=== PATIENT | male | born 1965 | race African-American/Black ===

== ENCOUNTER 2022-03-05 20:04 | Emergency (ER) | payer MEDICAID, OTHER ==
[~2022-03-05] VITALS: Ht 167.6 cm; Wt 66.1 kg
[~2022-03-05 20:04] MED LIST: CHOL20007 PO; FERR325T50 PO; LEVO750T64 PO; NOR10T PO
[2022-03-05] MEDS ORDERED: HYDROcodone-ACET 10/325MG TAB PO ONE (23:15)
[2022-03-05] MEDS ORDERED: OXYMETAZOLINE HCL 0.05 % NASAL SPRAY 15ML EACHNOSTRI ONE (23:15)
[2022-03-05] MEDS ORDERED: COCAINE HCL 4% TOP SOL 4ML TOP ONE (23:15)
[2022-03-05] MEDS ORDERED: TETRACAINE HCL 0.5% OPTH(EYE) SOLN 4ML LEFTEYE ONE (23:45)
[2022-03-05] MEDS ORDERED: TETRACAINE HCL 0.5% OPTH(EYE) SOLN 4ML RIGHTEYE ONE (23:45)
[2022-03-05 23:59] LABS: Albumin 3.8 g/dL (3.4-5.0); BUN/Creatinine Ratio 17.9; INR 1.01 (0.9-1.15); Partial Thromboplastin Time 26.9 sec (24.6-33.4); Potassium 4.3 mmol/L (3.5-5.1)
[2022-03-06 00:02] LABS: Basophils # (auto) 0 10 ^3/uL (0-0.2); Basophils % (auto) 0.4 % (0.0-2.0); Eosinophils # (auto) 0 10 ^3/uL (0-0.8); Hematocrit 41.2 % (41.0-53.0); Hemoglobin 14.2 g/dL (13.5-17.5); Lymphocytes # (auto) 1.2 10 ^3/uL (0.4-5.4); Lymphocytes % (auto) 22.4 % (10.0-50.0); Mean Corpuscular Hemoglobin 34.6 pg (28.0-32.0); Mean Corpuscular Hgb Conc. 34.4 g/dL (32.0-36.0); Mean Corpuscular Volume 100.6 fL (80.0-100.0); Monocytes # (auto) 0.4 10 ^3/uL (0-1.3); Monocytes % (auto) 7.4 % (0.0-12.0); Neutrophils # (auto) 3.6 10 ^3/uL (1.6-8.6); Neutrophils % (auto) 69.8 % (37.0-80.0); Nucleated Red Blood Cells % 0.1 %; Red Blood Cells 4.09 10^6/uL (4.5-5.90); Red Cell Distribution Width 15.8 % (11.8-14.3); White Blood Cell 5.2 10^3/uL (4.4-10.8)
[2022-03-06 00:13] LABS: Bilirubin, Total 0.4 mg/dL (0.2-1.0); Total Protein 7.5 g/dL (6.4-8.2)
[2022-03-06] MEDS ORDERED: HYDROmorphone HCL 2 MG/ML VL/or syr IM ONE (05:00)
[2022-03-06] MEDS ORDERED: ONDANSETRON ODT 4 MG TAB PO ONE (05:00)
[2022-03-06] MEDS ORDERED: IBUP600T28 PO (05:23)
[2022-03-06 05:30] VITALS: BP 149/88
[2022-03-06] MEDS ORDERED: KETOROLAC TROMETH 30 MG/ML 1ML VIAL IM ONE (05:45)
== END 2022-03-06 05:54 | disposition home or self-care (01) ==
LOC: ER 20:06
DX: S02.2XXA Fracture of nasal bones, initial encounter for closed fracture (principal); J44.9 Chronic obstructive pulmonary disease, unspecified; F12.10 Cannabis abuse, uncomplicated; Z87.891 Personal history of nicotine dependence; X58.XXXA Exposure to other specified factors, initial encounter; Y93.89 Activity, other specified; Y92.89 Other specified places as the place of occurrence of the external cause; Y99.8 Other external cause status
CPT/HCPCS: 36415; 70486; 80053; 85025; 85610; 85730; 96372; 99284; J1885; Q0162

== ENCOUNTER 2023-05-19 09:18 | Emergency (ER) | payer MEDICAID ==
[~2023-05-19] VITALS: Ht 165.1 cm; Wt 58.5 kg
[~2023-05-19 09:18] MED LIST changes: +IBUP1TAB5 PO; +LEVO750T40 PO; -LEVO750T64 PO
[2023-05-19 09:41] VITALS: BP 125/80; PULSE 77; TEMP 98
[2023-05-19] MEDS ORDERED: IPRATROPIUM BROM 0.5 MG/2.5ML INH SOL NEB ONE (10:00)
[2023-05-19] MEDS ORDERED: methylPREDNISolone SOD SUCC 125 MG/2 ML VL IM ONE (10:00)
[2023-05-19] MEDS ORDERED: ALBUTEROL SULF 2.5 MG/0.5ML(0.5%) NEB SOLN NEB ONE (10:00)
[2023-05-19 10:35] VITALS: RESP 20; O2SAT 95
[2023-05-19] MEDS ORDERED: PROM1SOL4 PO (10:59)
[2023-05-19] MEDS ORDERED: METH4PAK PO (10:59)
[2023-05-19] MEDS ORDERED: LEVO500T91 PO (10:59)
== END 2023-05-19 11:12 | disposition home or self-care (01) ==
LOC: ER 09:18
DX: J42 Unspecified chronic bronchitis (principal); F12.10 Cannabis abuse, uncomplicated; Z87.891 Personal history of nicotine dependence
CPT/HCPCS: 71045; 94640; 96372; 99283; J2930; J7644

== ENCOUNTER 2023-09-24 13:34 | Inpatient (IN) | payer MEDICAID ==
[~2023-09-24] VITALS: Ht 167.6 cm; Wt 66.0 kg
[2023-09-24 07:49] VITALS: PULSE 53; RESP 14; O2SAT 100
[~2023-09-24 13:34] MED LIST changes: +LEVO500T91 PO; +METH4PAK PO; +PROM1SOL4 PO
[2023-09-24 14:48] LABS: Mean Corpuscular Hemoglobin 32.8 pg (28.0-32.0)
[2023-09-24 14:53] LABS: Hematocrit 40.9 % (41.0-53.0); Hemoglobin 14.1 g/dL (13.5-17.5); Mean Corpuscular Hgb Conc. 34.5 g/dL (32.0-36.0); Mean Corpuscular Volume 95.1 fL (80.0-100.0); Red Cell Distribution Width 15.8 % (11.8-14.3)
[2023-09-24 14:56] LABS: White Blood Cell 1.6 10^3/uL (4.4-10.8)
[2023-09-24 14:58] LABS: Basophils % (manual) 0 (0.0-2.0); Blast Cells 0; Eosinophils % (manual) 0 (0-7); Metamyelocytes % 0; Myelocytes % 0; Promyelocytes % 0
[2023-09-24 15:03] LABS: Chloride 103 mmol/L (98-107); Potassium 3.7 mmol/L (3.5-5.1); Sodium 136 mmol/L (136-145)
[2023-09-24 15:04] LABS: Anion Gap 7 (5-15); Calcium 9.8 mg/dL (8.7-10.4); Carbon Dioxide 26 mmol/L (20-30)
[2023-09-24 15:09] LABS: BUN/Creatinine Ratio 8.3 (10.0-20.0); Blood Urea Nitrogen 9 mg/dL (9-23); Glucose 108 mg/dL (74-106)
[2023-09-24] MEDS: methylPREDNISolone SOD SUCC 125 MG/2 ML VL IV ONE (15:31)
[2023-09-24 16:12] LABS: Band Neutrophils % (manual) 1; Lymphocytes % (manual) 67 (10.0-50.0); Monocytes % (manual) 2 (0-12); Reactive Lymphocytes 5
[2023-09-24 16:13] LABS: Platelet Estimate Adequate
[2023-09-24] MEDS ORDERED: ACETAMINOPHEN 325 MG TAB PO PRN (20:15)
[2023-09-24] MEDS ORDERED: NITROGLYCERIN 0.4 MG SL TAB SL PRN (20:15)
[2023-09-24] MEDS ORDERED: DOCUSATE SOD 100 MG CAP PO PRN (20:15)
[2023-09-24] MEDS ORDERED: ONDANSETRON HCL 4 MG/2 ML VIAL IV PRN (20:15)
[2023-09-24] MEDS ORDERED: MORPHINE SULFATE INJ 2 MG/ml SYRG IV PRN ×2 (20:15)
[2023-09-24] MEDS ORDERED: AZITHROMYCIN 500MG/ 250ML 250 ML IV ONE (21:45)
[2023-09-24] MEDS: SODIUM CHLORIDE 0.9% 1,000 ML IV ONE (23:12)
[2023-09-24] MEDS: cefTRIAXone 1GM/50ML D5W 50 ML IV ONE (23:12)
[2023-09-24] MEDS: methylPREDNISolone SOD SUCC 40 MG/ML VL IV SCH (23:23)
[2023-09-24] MEDS: IOHEXOL 350 MG/ML 100ML IJ ONE (23:24)
[2023-09-24 23:38] LABS: Urine Bacteria None Seen /hpf (None Seen)
[2023-09-24 23:45] LABS: Urine Blood Negative /uL (Negative); Urine Clarity Clear (Clear); Urine Color Yellow (Yellow); Urine Mucus FEW (None Seen); Urine Protein, UAD 1+ (Negative); Urine Specific Gravity > 1.050 (1.001-1.035); Urine Urobilinogen 4 mg/dL (Negative); Urine WBC <1 /hpf (0 - 3)
[2023-09-24] MEDS: AZITHROMYCIN 500MG/ 250ML 250 ML IV SCH (23:54)
[2023-09-25] VITALS (17 sets, daily range): BP systolic 92–135; BP diastolic 59–92; PULSE 50–74; RESP 16–22; TEMP 97.7–98.3; O2SAT 95–100
[2023-09-25] MEDS: IPRATROPIUM BROM 0.5 MG/2.5ML INH SOL NEB SCH
[2023-09-25] MEDS: ALBUTEROL SULF 2.5 MG/0.5ML(0.5%) NEB SOLN NEB SCH
[2023-09-25] MEDS ORDERED: ATOR10TA52 PO (00:07)
[2023-09-25] MEDS ORDERED: LOSA-534 PO (00:07)
[2023-09-25] MEDS ORDERED: DEXTROSE (50%) 50ML SYRG IV PRN (00:15)
[2023-09-25 06:14] LABS: Hemoglobin 12.9 g/dL (13.5-17.5)
[2023-09-25 06:17] LABS: Hematocrit 38.1 % (41.0-53.0); Mean Corpuscular Hemoglobin 32.7 pg (28.0-32.0); Mean Corpuscular Volume 96.3 fL (80.0-100.0); Red Blood Cells 3.95 10^6/uL (4.5-5.90); Red Cell Distribution Width 15.5 % (11.8-14.3)
[2023-09-25 06:26] LABS: White Blood Cell 1.1 10^3/uL (4.4-10.8)
[2023-09-25 06:27] LABS: Basophils % (manual) 0 (0.0-2.0); Blast Cells 0; Eosinophils % (manual) 0 (0-7); Metamyelocytes % 0; Myelocytes % 0; Promyelocytes % 0; Reactive Lymphocytes 0
[2023-09-25] MEDS: ACCU-CHEK COMFORT CURVE STRIP VI SCH (06:40)
[2023-09-25] MEDS: InsuLIN REG 1unit/0.01ml Soln (100units/ml) SC SCH (06:41)
[2023-09-25 06:44] LABS: Alanine Aminotransferase 21 U/L (7-40); Albumin 4.3 g/dL (3.2-4.8); Alkaline Phosphatase 55 U/L (46-116); Anion Gap 6 (5-15); Aspartate Aminotransferase 18 U/L (13-40); BUN/Creatinine Ratio 14.1 (10.0-20.0); Bilirubin, Total 0.3 mg/dL (0.2-1.0); Blood Urea Nitrogen 13 mg/dL (9-23); Calcium 9.8 mg/dL (8.5-10.1); Carbon Dioxide 26 mmol/L (20-30); Chloride 104 mmol/L (98-107); Glucose 136 mg/dL (74-106); Potassium 4.5 mmol/L (3.5-5.1); Sodium 136 mmol/L (136-145); Total Protein 7.8 g/dL (5.7-8.2)
[2023-09-25 06:48] LABS: Erythrocyte Sedimentation Rate 64 mm/hr (0-20)
[2023-09-25 06:52] LABS: CRP High Sensitivity 5.21 mg/dL (<1.0)
[2023-09-25] MEDS: PANTOPRAZOLE 40 MG TAB PO SCH (07:03)
[2023-09-25 07:40] LABS: Band Neutrophils % (manual) 3; Lymphocytes % (manual) 33 (10.0-50.0); Monocytes % (manual) 3 (0-12); Platelet Estimate Adequate
[2023-09-25] MEDS: cefTRIAXone 1GM/50ML D5W 50 ML IV SCH (09:08)
[2023-09-25] MEDS: FILGRASTIM (TBO) 300 MCG/0.5 ML SYRG SC ONE (09:09)
[2023-09-25] MEDS: LOSARTAN POTASSIUM 50 MG TAB PO SCH (10:00)
[2023-09-25] MEDS: ATORVASTATIN 20 MG TAB PO SCH (10:00)
[2023-09-25] MEDS: ENOXAPARIN SOD 40 MG/0.4 ML SYRINGE SC SCH (10:00)
[2023-09-25] MEDS ORDERED: AMLO1TAB23 PO (12:35)
[2023-09-25] MEDS ORDERED: CYCL-611 PO (12:35)
[2023-09-25] MEDS ORDERED: PERCOT PO (12:37)
[2023-09-25] MEDS ORDERED: TIOTCAP INH (12:37)
[2023-09-26] VITALS (14 sets, daily range): BP systolic 100–125; BP diastolic 56–74; PULSE 57–73; RESP 16–22; TEMP 97.3–98.2; O2SAT 96–100
[2023-09-26] MEDS: HYDROcodone-ACET 5/325MG TAB PO PRN (10:04)
[2023-09-27] VITALS (12 sets, daily range): BP systolic 116–134; BP diastolic 68–75; PULSE 60–77; RESP 14–18; TEMP 97.5–98.7; O2SAT 100
[2023-09-27] MEDS ORDERED: OXYC325T14 PO (11:02)
[2023-09-27] MEDS ORDERED: DICL1GEL59 TOP (11:10)
[2023-09-27] MEDS ORDERED: METF-370 PO (11:10)
[2023-09-27] MEDS ORDERED: IBUP-1456 PO (11:10)
[2023-09-27] MEDS ORDERED: AMOX500T86 PO (13:13)
[2023-09-27] MEDS ORDERED: PRED20TA2 PO (13:13)
== END 2023-09-27 16:00 | disposition home or self-care (01) | DRG 140 ==
LOC: ER 13:34 → TELE 20:24 → TELE-CENTR 09-25 16:11 → CENTRAL 09-26 22:15
PROVIDERS: ADMIT Nurse Practitioner Family; ATTEND Nurse Practitioner Acute Care
DX: J44.1 Chronic obstructive pulmonary disease with (acute) exacerbation (principal); J96.21 Acute and chronic respiratory failure with hypoxia; E11.9 Type 2 diabetes mellitus without complications; E78.5 Hyperlipidemia, unspecified; F12.10 Cannabis abuse, uncomplicated; I10 Essential (primary) hypertension; J43.9 Emphysema, unspecified; G89.29 Other chronic pain; M54.9 Dorsalgia, unspecified; M54.50 Low back pain, unspecified; Z79.1 Long term (current) use of non-steroidal anti-inflammatories (NSAID); Z79.899 Other long term (current) drug therapy; Z79.891 Long term (current) use of opiate analgesic; Z87.891 Personal history of nicotine dependence; Z82.5 Family history of asthma and other chronic lower respiratory diseases; Z82.49 Family history of ischemic heart disease and other diseases of the circulatory system
CPT/HCPCS: 36415; 70450; 70545; 71045; 71275; 80048; 80053; 81001; 82607; 82962; 83880; 84443; 84484; 85007; 85027; 85379; 85652; 86141; 93005; 94640; 96365; 96366; 96372; 96375; 99291; G0378; J1447